=== PATIENT | male | born 1945 | race Hispanic/Latino ===

== ENCOUNTER 2022-12-22 23:31 | Emergency (ER) | payer OTHER ==
[2022-12-23] MEDS ORDERED: Ondansetron PF 4 MG/2 ML Vial ONE (02:17)
[2022-12-23] MEDS ORDERED: Acetaminophen 500 MG TAB ONE (02:17)
[2022-12-23 02:55] LABS: #Monocytes 0.5 10x3/uL (0.0-1.1); #Neutrophils 5.1 10x3/uL (1.5-8.4); %Basophils 0.3 % (0.0-2.0); %Eosinophils 0.3 % (0.0-6.0); %Lymphocytes 11.5 % (18.0-47.0); %Monocytes 7.1 % (0.0-10.0); %Neutrophils 80.5 % (40.0-75.0); Hematocrit 41.8 % (38.8-50.0); Mean Corpuscular HGB CONC 33.5 g/dL (32.0-36.0); Mean Corpuscular Hemoglobin 31.5 pg (27.0-33.0); Mean Corpuscular Volume 94.1 fl (81.2-95.1); Mean Platelet Volume 11.1 fl (7.4-10.4); Platelet Count 145 10x3/uL (150-450); RBC Distribution Width 14.1 % (11.5-14.5); Red Blood Cell (RBC) Count 4.44 10x6/uL (4.32-5.72); White Blood Cell (WBC) Count 6.3 10x3/uL (3.5-10.5)
[2022-12-23 03:04] LABS: Anion Gap 15 mmol/L (10-20); BUN (Urea Nitrogen) 13 mg/dL (8.4-25.7); Calc. Creatinine Clearance 0 mL/min (70-130); Calcium 8.8 mg/dL (7.8-10.44); Carbon Dioxide 22 mmol/L (23-31); Chloride 101 mmol/L (98-107); Estimated GFR 92; Glucose 118 mg/dL (83-110); Sodium 133 mmol/L (136-145)
[2022-12-23 03:26] LABS: Potassium 4.5 mmol/L (3.5-5.1)
[2022-12-23 03:34] LABS: SARS-CoV-2 NAA Rapid Test DETECTED (NotDetected)
[2022-12-23] MEDS ORDERED: Albuterol 200 PUFF (6.7GM INHALER) INH SCH (04:45)
== END 2022-12-23 04:45 | disposition home or self-care (01) ==
LOC: CSHERS 23:31
DX: U07.1 COVID-19 (principal); I10 Essential (primary) hypertension; Z79.899 Other long term (current) drug therapy
CPT/HCPCS: 0240U; 71045; 80048; 85025; 93005; 94664; 94760; 96374; J2405

== ENCOUNTER 2024-06-07 08:56 | Emergency (ER) | payer OTHER ==
[2024-06-07] MEDS ORDERED: Lidocaine 4% Patch ONE (09:53)
[2024-06-07] MEDS ORDERED: Ketorolac Tromethamine 30 MG (1 mL) VIAL ONE (09:53)
[2024-06-07 10:36] LABS: #Basophils 0.03 10x3/uL (0.0-0.2); #Eosinophils 0.07 10x3/uL (0.0-0.5); #Monocytes 0.76 10x3/uL (0.0-1.1); #Neutrophils 7.44 10x3/uL (1.5-8.4); %Basophils 0.3 % (0.0-2.0); %Eosinophils 0.7 % (0.0-6.0); %Monocytes 7.8 % (0.0-10.0); %Neutrophils 76.8 % (40.0-75.0); Hematocrit 44.9 % (38.8-50.0); Hemoglobin 14.6 g/dL (13.5-17.5); Mean Corpuscular HGB CONC 32.5 g/dL (32.0-36.0); Mean Corpuscular Hemoglobin 30.5 pg (27.0-33.0); Mean Corpuscular Volume 93.7 fL (81.2-95.1); Mean Platelet Volume 10.5 fL (7.4-10.4); Platelet Count 147 10x3/uL (150-450); RBC Distribution Width 13.9 % (11.5-14.5); Red Blood Cell (RBC) Count 4.79 10x6/uL (4.32-5.72)
[2024-06-07 10:50] LABS: Anion Gap 12 mmol/L (10-20); BUN (Urea Nitrogen) 14 mg/dL (8.4-25.7); Calc. Creatinine Clearance 0 mL/min (70-130); Calcium 8.7 mg/dL (7.8-10.44); Carbon Dioxide 22 mmol/L (23-31); Chloride 107 mmol/L (98-107); Estimated GFR 98; Glucose 107 mg/dL (83-110); Potassium 4.4 mmol/L (3.5-5.1); Sodium 137 mmol/L (136-145)
[2024-06-07 10:58] LABS: Troponin I Less than 0.010 ng/mL (< 0.028)
== END 2024-06-07 11:46 | disposition home or self-care (01) ==
LOC: CSHERS 08:56
DX: S13.4XXA Sprain of ligaments of cervical spine, initial encounter (principal); I10 Essential (primary) hypertension; X58.XXXA Exposure to other specified factors, initial encounter
CPT/HCPCS: 71045; 80048; 83880; 84484; 85025; 93005; J1885; 96374